=== PATIENT | male | born 2005 | race Caucasian/White ===

== ENCOUNTER 2024-01-21 13:16 | Emergency (ER) | payer MEDICAID, SELFPAY ==
[2024-01-21 13:19] VITALS: BP 149/97; PULSE 85; RESP 20; TEMP 36.3; O2SAT 95
--- NOTE | 2024-01-21 13:30 | DI.CT_ITS ---
Exam(s) CT HEAD WO EXAM: CT HEAD WO CLINICAL HISTORY: Hx of seizure. TECHNIQUE: Imaging Protocol: Axial computed tomography images with coronal and sagittal reformatted images were created and reviewed COMPARISON: No exams were available for comparison FINDINGS: Ventricles and Extra axial spaces: Normal in size and morphology for the patient's age. Hemorrhage: None. Cerebral parenchyma: No evidence of acute infarct or mass. Midline shift: None. Brainstem/Cerebellum: Normal. Calvarium: Normal. Visualized Paranasal sinuses:Clear. Mastoids: Clear. Soft Tissues: Unremarkable. ORBITS: Unremarkable. PITUITARY: Not enlarged. IMPRESSION: No acute intracranial process. RADIATION DOSE DELIVERED: Total DLP DATA REPOSITORY: All CT scans at this facility are submitted to the National Radiology Data Registry (NRDR) Dose Index Registry (DIR) with the [employer] (A[employer]). RADIATION OPTIMIZATION: All CT scans at this facility use at least one of these dose optimization te chniques: automated exposure control; mA and/or kV adjustment per patient size (includes targeted exa ms where dose is matched to clinical indication); or iterative reconstruction.
--- NOTE | 2024-01-21 13:41 | ED.GENADUL_ITS ---
Discharge Plan Disposition Patient Disposition: Home Condition: Stable Discharge Details Clinical Impression: Seizure-like activity Primary Care Provider: None,None ED Provider: Helen Matute Home Meds and New Rx's Prescriptions: New levetiracetam [Keppra] 500 mg tablet 500 mg PO BID 30 Days Qty: 60 0RF Rx Instructions: Take one tablet twice daily as directed. No Action acetaminophen 325 mg capsule 650 mg PO Q6H PRN ibuprofen [Addaprin] 200 mg tablet 200 mg PO Q6H Discharge Instructions Instructions: Seizures, Adult ED Additional Instructions: Take the medication as directed, follow up with Neurologist within a week. Call here to make an appointment tomorrow. You may also try to get an appointment at [facility] or surrounding facilities if not able to get in within a reasonable amount of time. CT within normal limits. Follow up with primary care provider in 3-5 days. Return to ED sooner if any worsening seizure like activity, confusion, headaches, blurry vision, chest pain or concerns. Referrals: Primary Care Provider [Outside] - 3 days Anna Bennett MD [ [facility] STAFF PHYSICIAN] - 2 weeks (Seizure -like activity) Discharge Data Discharge Date/Time-TO BE ENTERED AT DEPARTURE: 01/21/24 16:32 HPI General Mode of arrival: ambulatory . Date/Time Provider Initiated Documentation: 01/21/24 13:22 . Limitations to Documentation: no limitations . Information obtained by: patient, family, RN notes reviewed and old records reviewed . HPI Narrative: 18 year old male presents to the ER accompanied by Mother with cc of feeling off x 1 week ago. Remote history of seizures with an onset at age 14. Patient reports that 1 week ago he felt a little bit off and fell like he could have a seizure however did not actually have a seizure at that time. Denies any recent head injuries, any recent illnesses denies any fever chills, no headache no blurry vision no nausea vomiting diarrhea abdominal pain or problems urinating. Mother reports that he was told by pediatric neurologist that these were febrile seizures. She denies having any EEG testing or had imaging for this. They are requesting workup at this time. Denies any recent head injuries. Related Data Home Medications ?Medication ?Instructions ?Recorded ?Confirmed acetaminophen 325 mg capsule 650 mg PO Q6H PRN 08/25/24 08/25/24 ibuprofen 200 mg tablet (Addaprin) 200 mg PO Q6H 01/21/24 01/21/24 levetiracetam 500 mg tablet 500 mg PO BID Seizures 30 days #60 01/21/24 (Keppra) tabs Previous Rx's ?Medication ?Instructions ?Recorded levetiracetam 500 mg tablet 500 mg PO BID Seizures 30 days #60 01/21/24 (Keppra) tabs Allergies Allergy/AdvReac Type Severity Reaction Status Date / Time No Known Allergies Allergy Unverified 01/21/24 14:28 General Stated Complaint: GenMedical MARIAM: 4 Review of Systems All systems reviewed & are unremarkable except as noted in HPI and below Constitutional Constitutional: Reports as per HPI and Denies headache(s) ENT Ears, Nose, Mouth, and Throat: Denies headache(s) Neurologic Neurologic: Denies headache(s) and Reports convulsions (None in the last few years.) Exam Narrative Exam Narrative: Constitutional: Alert and oriented x3. Appears stated age. Normal body habitus. Head: Normocephalic, no trauma. Eyes: Pupils PERRL, Red reflex noted, EOM's intact. Eyelids symmetrical without lesions, discharge, or swelling. ENT: Bilateral TM's WNL, External ear normal to inspection, no mastoid TTP, swelling, or erythema, Nasal turbinates WNL, no nasal discharge. Normal dentition, Posterior pharynx WNL, no exudate. Chest: RRR, Normal S1, S2, distal pulses intact. Resp: Lungs clear to auscultation bilaterally, no wheezes, rales, or rhonchi. Abdomen: Soft, non-distended, Normoactive bowel sounds all 4 quads. Musculoskeletal: Normal gait, Moves all 4 extremities without difficulty. Skin: No suspicious rashes or lesions. Capillary refill less than 2 sec. Neurologic: Cranial nerves II-XII intact. Alert and oriented x 3. Motor: No deficits noted. Sensory: Intact bilaterally all 4 extremities. Hematologic/Lymphatic: No ecchymosis, no lymphadenopathy. Course Vital Signs Vital signs: Vital Signs Temperature 36.3 C L 01/21/24 13:19 Pulse 85 01/21/24 13:19 Respiratory Rate 20 01/21/24 13:19 Blood Pressure 149/97 H 01/21/24 13:19 Pulse Oximetry 95 01/21/24 13:19 Temperature 36.3 C L 01/21/24 13:19 Temperature Source Tympanic 01/21/24 13:19 Pulse 85 01/21/24 13:19 Respiratory Rate 20 01/21/24 13:19 Blood Pressure 149/97 H 01/21/24 13:19 Blood Pressure Position Supine 01/21/24 13:19 Pulse Oximetry 95 01/21/24 13:19 Oxygen Delivery Method Room Air 01/21/24 13:19 Oxygen Flow Rate 0 01/21/24 13:19 Pain Level 0 01/21/24 13:19 Medical Decision Making 18 year old male presents to the ER accompanied by Mother with cc of feeling off x 1 week ago. Remote history of seizures with an onset at age 14. Patient reports that 1 week ago he felt a little bit off and fell like he could have a seizure however did not actually have a seizure at that time. Denies any recent head injuries, any recent illnesses denies any fever chills, no headache no blurry vision no nausea vomiting diarrhea abdominal pain or problems urinating. Mother reports that he was told by pediatric neurologist that these were febrile seizures. She denies having any EEG testing or had imaging for this. They are requesting workup at this time. Denies any recent head injuries. General Workup ordered including CBC CMP, urinalysis UDS, head CT. Will refer to neurology. 1403: Called to bedside for staff assist, reported witnessed seizure like activity by direct support staff member. patient's, eyes rolled back into head, and he became unresponsive, patient appears slightly post-ictal upon my evaluation. Differential dx includes but not limited to vasovagal response, seizure, syncope, dehydration, On patient reevaluation he reports feeling much better after Lorazepam 0.5 mg IV and 500mg Keppra IVPB. CT head shows no acute abnormality. Patient discharged with Keppra 500mg BID and neurology referral . Remained h emodynamically stable throughout remainder of stay. Medical Records Medical records reviewed: Yes I reviewed the patient's medical records. Lab Data Lab results reviewed: Yes I reviewed the patient's lab results. Labs: Laboratory Tests Range/Units 01/21/24 01/21/24 13:20 16:00 WBC (4.4-10.8) 10^3/uL 10.59 RBC (4.36-5.78) 10^6/uL 5.44 Hgb (13.5-17.5) g/dL 17.3 Hct (40.0-50.0) % 49.4 MCV (80-95) fL 91 MCH (27.0-33.0) pg 31.8 MCHC (32.0-36.0) % 35.0 RDW (11.8-14.1) % 11.9 Plt Count (130-400) 10^3/uL 339 MPV (8.0-11.0) fL 9.8 Immature Gran % % 0.5 Neutrophils % % 58.8 Lymphocytes % % 31.1 Monocytes % % 7.0 Eosinophils % % 1.8 Basophils % % 0.8 Nucleated RBC % (0.0-0.3) % 0.0 Absolute Neutrophils (1.2-6.7) 10^3/uL 6.24 Absolute Lymphocytes (1.2-3.4) 10^3/uL 3.29 Absolute Monocytes (0.1-0.8) 10^3/uL 0.74 Absolute Eosinophils (0.0-0.7) 10^3/uL 0.19 Absolute Basophils (0.0-0.2) 10^3/uL 0.08 Sodium (136-145) mmol/L 140 Potassium (3.5-5.1) mmol/L 3.6 Chloride (98-107) mmol/L 102 Carbon Dioxide (21.0-32.0) mmol/L 28.7 Anion Gap (3-11) mmol/L 9.3 BUN (7-18) mg/dL 21 H Creatinine (0.70-1.30) mg/dL 1.0 Est GFR (CKD-EPI 2020) (mL/min/1.73m2) 110.50 Glucose (74-106) mg/dL 100 Calcium (8.5-10.1) mg/dL 9.5 Magnesium (1.8-2.4) mg/dL 2.0 Total Bilirubin (0.2-1.0) mg/dL 0.83 AST (15-37) U/L 13 L ALT (16-63) U/L 22 Alkaline Phosphatase (46-116) U/L 66 Total Protein (6.4-8.2) g/dL 8.0 Albumin (3.4-5.0) g/dL 4.8 Urine Color (Yellow) Yellow Urine Clarity (Clear) Clear Urine pH (5-8) 6.5 Ur Specific [place] (1.005-1.025) 1.025 Urine Protein (Neg-Trace) mg/dL Negative Urine Ketones (Negative) mg/dL Negative Urine Blood (Negative) Negative Urine Nitrite (Negative) Negative Urine Bilirubin (Negative) Negative Urine Urobilinogen (Up to 0.2) mg/dL 0.2 Ur Leukocyte Esterase (Negative) Negative Urine Glucose (Negative) mg/dL Negative Urine Opiates Screen (Negative) Negative Urine Methadone Screen (Negative) Negative Ur Barbiturates Screen (Negative) Negative Ur Tricyclics Screen (Negative) Negative Ur Amphetamines Screen (Negative) Negative U Benzodiazepines Scrn (Negative) Negative Urine Cocaine Screen (Negative) Negative Ur THC Screen (Negative) Negative Ethyl Alcohol (<10) mg/dL < 3.0 Quality:SDOH Health Related Social Needs: No Data to Display PFSH All Active Problems (Updated 01/21/24 @ 15:45 by Helen Matute NP) Seizure-like activity (Acute) Social History Smoking risk assessment performed?: No Housing: house Do you feel safe at home: Yes Do you feel safe in your relationship?: Yes
[2024-01-21] MEDS: LORazepam 2 MG/ML VIAL 0.5 MG IVP (14:22)
[2024-01-21 14:23] VITALS: BP 149/97; PULSE 85; RESP 18; RESP 20; TEMP 36.3; O2SAT 95
[2024-01-21 14:27] LABS: Abs Immature Grans 0.05 10^3/uL (0.0-0.06); Absolute Basophil Count 0.08 10^3/uL (0.0-0.2); Absolute Eosinophil Count 0.19 10^3/uL (0.0-0.7); Absolute Lymphocyte Count 3.29 10^3/uL (1.2-3.4); Absolute Monocyte Count 0.74 10^3/uL (0.1-0.8); Absolute Neutrophil Count 6.24 10^3/uL (1.2-6.7); Basophils % 0.8 %; Eosinophils % 1.8 %; HCT 49.4 % (40.0-50.0); HGB 17.3 g/dL (13.5-17.5); Immature Grans % 0.5 %; Lymphocytes % 31.1 %; MCH 31.8 pg (27.0-33.0); MCV 91 fL (80-95); MPV 9.8 fL (8.0-11.0); Neutrophils % 58.8 %; Platelet Count 339 10^3/uL (130-400); RBC 5.44 10^6/uL (4.36-5.78); RDW 11.9 % (11.8-14.1); RDW-SD 39.7 fL; WBC 10.59 10^3/uL (4.4-10.8)
[2024-01-21 14:43] LABS: ALT 22 U/L (16-63); AST 13 U/L (15-37); Albumin 4.8 g/dL (3.4-5.0); Alkaline Phosphatase 66 U/L (46-116); Anion Gap 9.3 mmol/L (3-11); BUN 21 mg/dL (7-18); Bilirubin, Total 0.83 mg/dL (0.2-1.0); CO2 28.7 mmol/L (21.0-32.0); Calcium 9.5 mg/dL (8.5-10.1); Chloride 102 mmol/L (98-107); Glucose 100 mg/dL (74-106); Potassium 3.6 mmol/L (3.5-5.1); Sodium 140 mmol/L (136-145)
[2024-01-21 14:44] LABS: ETHANOL BLOOD < 3.0 mg/dL (<10)
[2024-01-21] MEDS: Normal Saline 1,000 ML 1000 ML IV (14:55)
--- NOTE | 2024-01-21 14:58 | DI.VRAD_ITS ---
PROCEDURE INFORMATION: Exam: CT Head Without Contrast Exam date and time: 01/21/2024 2:31 PM Age: 18 years old Clinical indication: Other: Seizure TECHNIQUE: Imaging protocol: Computed tomography of the head without contrast. Radiation optimization: All CT scans at this facility use at least one of these dose optimization techniques: automated exposure control; mA and/or kV adjustment per patient size (includes targeted exams where dose is matched to clinical indication); or iterative reconstruction. COMPARISON: No relevant prior studies available. FINDINGS: Brain: No hemorrhage. Unremarkable white matter. No mass effect. Cerebral ventricles: No ventriculomegaly. Paranasal sinuses: Visualized sinuses are unremarkable. No fluid levels. Mastoid air cells: Visualized mastoid air cells are well aerated. Bones: Unremarkable. No acute fracture. Soft tissues: Unremarkable. IMPRESSION: No acute intracranial abnormality. Dictated and Authenticated by: Melvin Carpenter MD. Ordering:REBEKAH Cervantes MD
--- NOTE | 2024-01-21 15:05 | NUR.NOTE ---
Referral faxed [facility] for follow up to Seizure like Activities in 2 weeks. Pt was prescribed Keppra
[2024-01-21] MEDS: levETIRAcetam 500 MG in Normal Saline 100 ML 400 MG IVPB (15:06)
[2024-01-21 15:30] VITALS: BP 122/59; PULSE 64; RESP 18; TEMP 36.4; O2SAT 100
[2024-01-21 16:13] LABS: Bilirubin Negative (Negative); Blood Negative (Negative); Clarity Clear (Clear); Glucose Negative (Negative); Ketones Negative (Negative); Leukocyte Esterase Negative (Negative); Nitrite Negative (Negative); Specific Gravity 1.025 (1.005-1.025); Urobilinogen 0.2 mg/dL (Up to 0.2); pH 6.5 (5-8)
[2024-01-21 16:24] LABS: *AMPHETAMINES SCREEN URINE Negative (Negative); *BARBITURATES SCREEN URINE Negative (Negative); *BENZODIAZEPINES SCREEN URINE Negative (Negative); Cannabinoids THC Negative (Negative); Cocaine Screen,Urine Negative (Negative); METHADONE URINE SCREEN Negative (Negative); OPIATES URINE SCREEN Negative (Negative); Tricyclic Antidepressants Negative (Negative)
== END 2024-01-21 16:32 | disposition home or self-care (01) ==
LOC: ER 16:16
PROVIDERS: Emergency Provider Registered Nurse Emergency
DX: R56.9 Unspecified convulsions (principal)
CPT/HCPCS: 80053; 80307; 96361; 96365; 96375; 99285; 70450; 80320; 81003; 83735; 85025; J1953; J2060

== ENCOUNTER 2024-03-05 00:43 | Outpatient (CLI) | payer MEDICAID, SELFPAY ==
--- NOTE | 2024-03-05 07:45 | DI.MRI_ITS ---
Exam(s) MR BRAIN WO EXAM: MR BRAIN WO CLINICAL HISTORY: new onset seizures,r56.9 TECHNIQUE: Multiplanar multisequence MRI of the brain was performed. COMPARISON: No exams were available for comparison FINDINGS: VENTRICLES AND EXTRA AXIAL SPACES: Normal in size and morphology for the patient's age. MIDLINE SHIFT: None. CEREBRAL PARENCHYMA: No focus of restricted diffusion to suggest acute infarct. No space-occupying le rebeka identified. No evidence of hemorrhage. Normal quintana-white matter differentiation. Temporal lob es appear symmetric. BRAINSTEM/CEREBELLUM: Normal. VISUALIZED PARANASAL SINUSES: Clear. MASTOIDS:Clear. Vasculature: Normal flow void. PITUITARY GLAND: Unremarkable. ORBITS: Unremarkable. IMPRESSION: Unremarkable MRI of the brain. DATA REPOSITORY:
== END 2024-03-05 01:03 ==
LOC: DI 00:43
PROVIDERS: Visit Provider Psychiatry & Neurology Neurology
DX: R56.9 Unspecified convulsions (principal)
CPT/HCPCS: 70551

== ENCOUNTER 2024-03-19 02:17 | Outpatient (CLI) | payer MEDICAID, SELFPAY ==
--- NOTE | 2024-03-20 08:01 | PDOC.EEG ---
Neurology EEG EEG: [facility] Department of Neurology EEG REPORT Date of Recordin03/19/24 Interpreting Physician: Dr. Anna Bennett PCP/Referring Provider: no PCP; ordered by above Reason for study: Eliezer Knowles is a 18 year-old with presumed epilepsy. Current Medications: Home Medications ?Medication ?Instructions ?Recorded ?Confirmed ?Type acetaminophen 325 mg capsule 650 mg PO Q6H PRN 01/21/24 01/30/24 History ibuprofen 200 mg tablet (Addaprin) 200 mg PO Q6H 01/21/24 01/30/24 History levetiracetam 500 mg tablet 500 mg PO BID Seizures #180 tabs 01/30/24 01/30/24 Rx (Keppra) METHODS: A 21 channel digitized electroencephalogram was performed in the [facility] Clinical Neurophysiology Laboratory. The 10/20 international system of electrode placement was used and bipolar and referential electrode montages were recorded. In addition to EEG the patient was monitored for EKG and lateral/vertical eye movements. Activation procedures of photic stimulation and hyperventilation were performed if applicable. Video was used during activation procedures and during events where applicable. The duration of the recording was 30 minutes. DESCRIPTION OF EEG: The patient was noted to be awake and drowsy during the recording. During maximal wakefulness, the posterior background rhythm (not able to measure exact frequency) was present which was well-modulated, symmetrical, reactive to eye opening, and of moderate voltage. With eye opening the background activity changed to a low voltage mixture of alpha, beta, and occasional theta range frequencies. Faster frequencies were present in the bilateral anterior head regions. There was a normal anterior-posterior voltage gradient. No drowsiness or stage II sleep was recorded. Activating Procedures: Photic stimulation was performed which produced a symmetrical posterior driving response at various flash frequencies. Hyperventilation was performed with moderate effort and produced no physiological slowing of the background. EKG: EKG revealed normal sinus rhythm. INTERPRETATION: This EEG is normal during the awake state as well as during photic stimulation and hyperventilation. PRIOR EEG: none CLINICAL CORRELATION: No focal regions of cerebral dysfunction or epileptiform activity was present. Epilepsy remains a clinical diagnosis and a normal EEG does not rule out epilepsy. Clinical correlation is advised. Anna Bennett MD Date of service: 03/19/24
== END 2024-03-19 02:18 | disposition home or self-care (01) ==
PROVIDERS: Visit Provider Psychiatry & Neurology Neurology
DX: R68.89 Other general symptoms and signs (principal)
CPT/HCPCS: 95816